=== PATIENT | female | born 1960 | race Caucasian/White ===

== ENCOUNTER 2018-04-30 13:36 | Inpatient (IN) ==
--- NOTE | 2018-04-30 14:41 | ED ---
HPI General Chief Complaint: Psychiatric Symptoms Stated Complaint: Psych Eval Time Seen by Provider: 04/30/18 14:22 Source: patient Mode of arrival: ambulatory Limitations: no limitations History of Present Illness HPI Narrative: Patient is a 57-year-old female who presents to the emergency room for psychiatric evaluation. Patient reports that she has been feeling depressed, feels like she is extremely anxious. Patient reports that she had the beginnings of a psychiatric workup when she was seen at the other hospitals , reports that she never stayed for psychiatric evaluation. Patient reports that she would like to complete the process to be seen by psychiatrist. Patient denies suicidal or homicidal ideations at this time. Reports that she used to drink alcohol daily - she quit drinking alcohol 3 weeks ago. Denies use of drugs. Related Data Home Medications Medication Instructions Recorded Confirmed No Known Home Medications 02/28/18 04/30/18 Allergies Allergy/AdvReac Type Severity Reaction Status Date / Time No Known Allergies Allergy Verified 04/30/18 13:41 Review of Systems ROS: all other systems reviewed are negative [facility] Medical History Medical History Anxiety (Acute) Surgical History Surgical History No history of previous surgery (Acute) Social History Social History Substance History: No History of Abuse Second Hand Smoke Exposure: No Smoking Status: Current every day smoker Tobacco Type: Cigarettes How Often Do You Have a Drink Containing Alcohol: Never Recent Travel in [facility] within the Last 8 Weeks: No Recent Out of Country Travel within the Last 8 Weeks: No Immunization History Tetanus Immunization: Unsure Exam Narrative Exam Narrative: GENERAL: NAD SKIN: Focused skin assessment warm/dry. HEAD: Atraumatic. Normocephalic. EYES: Pupils equal and round. No scleral icterus. No injection or drainage. ENT: No nasal bleeding or discharge. Mucous membranes pink and moist. NECK: Trachea midline. No JVD. CARDIOVASCULAR: Regular rate and rhythm. No murmur appreciated. RESPIRATORY: No accessory muscle use. Clear to auscultation. Breath sounds equal bilaterally. GASTROINTESTINAL: Abdomen soft, non-tender, nondistended. Hepatic and splenic margins not palpable. MUSCULOSKELETAL: No obvious deformities. No clubbing. No cyanosis. No edema. NEUROLOGICAL: Awake and alert. No obvious cranial nerve deficits. Motor grossly within normal limits. Normal speech. PSYCHIATRIC: Anxious mood and affect; -Si -HI Course Initial Documented Vital Signs Temperature 97.4 F L 04/30/18 13:39 Pulse Rate 104 H 04/30/18 13:39 Respiratory Rate 18 04/30/18 13:39 Blood Pressure 167/113 H 04/30/18 13:39 Pulse Oximetry 99 04/30/18 13:39 Last Documented Vital Signs Temperature 97.4 F L 04/30/18 13:39 Pulse Rate 104 H 04/30/18 13:39 Respiratory Rate 18 04/30/18 13:39 Blood Pressure 167/113 H 04/30/18 13:39 Pulse Oximetry 99 04/30/18 13:39 Medical Decision Making MDM Narrative Medical decision making narrative: During the course of the patients emergency department visit, the patients history, examination, and differential diagnosis were reviewed with the patient. Patient denies SI or HI, psychiatric screening labs were ordered. Once labs have resulted, will be seen by psychiatric screener. Patient was evaluated utilizing the RMA process. Initially seen by Dr. West. CBC reveals WBC 6.3, hemoglobin 16.8. CMP with no acute findings. TSH 0.913. UA with occasional bacteria. No culture pending indicated. Tox screen negative. Alcohol less than 3. Patient is medically clear for psychiatric evaluation. Medical Screen Exam Complete: Yes Emergency Medical Condition: Yes Differential Diagnosis Differential Diagnosis: depression, anxiety Lab Data Result diagrams: 04/30/18 14:53 04/30/18 14:53 Lab Results 04/30/18 04/30/18 04/30/18 Range/Units 14:53 14:53 15:30 WBC 6.3 (4.0-11.0) th/mm3 RBC 4.99 (4.00-5.30) mil/mm3 Hgb 16.8 H (11.6-15.3) gm/dL Hct 48.9 H (35.0-46.0) % MCV 97.9 (80.0-100.0) fL MCH 33.7 (27.0-34.0) pg MCHC 34.4 (32.0-36.0) % RDW 12.7 (11.6-17.2) % Plt Count 311 (150-450) th/mm3 MPV 9.4 (7.0-11.0) fL Neut % (Auto) 59.3 (16.0-70.0) % Lymph % (Auto) 33.0 (9.0-44.0) % [place] % (Auto) 6.1 (0.0-8.0) % Eos % (Auto) 0.7 (0.0-4.0) % Baso % (Auto) 0.9 (0.0-2.0) % Neut # (Auto) 3.7 (1.8-7.7) th/mm3 Lymph # (Auto) 2.1 (1.0-4.8) th/mm3 [place] # (Auto) 0.4 (0.0-0.9) th/mm3 Eos # (Auto) 0.0 (0.0-0.4) th/mm3 Baso # (Auto) 0.1 (0.0-0.2) th/mm3 WBC Differential . Differential Comment Auto diff final Sodium 136 (136-145) meq/L Potassium 3.6 (3.5-5.1) meq/L Chloride 103 (98-107) meq/L Carbon Dioxide 25.2 (21.0-32.0) meq/L Anion Gap 8 (5-15) meq/L BUN 3 L (7-18) mg/dL Creatinine 0.48 L (0.50-1.00) mg/dL Estimated GFR Greater than 89 (>89) mL/min Random Glucose 88 (74-106) mg/dL Calcium 8.7 (8.5-10.1) mg/dL Magnesium 2.2 (1.5-2.5) mg/dL Total Bilirubin 0.4 (0.2-1.0) mg/dL AST 16 (15-37) U/L ALT 19 (10-53) U/L Alkaline Phosphatase 106 (45-117) U/L Total Protein 7.4 (6.4-8.2) g/dL Albumin 3.7 (3.4-5.0) g/dL TSH 0.913 (0.358-3.740) uIU/mL Urine Opiates Screen Neg (Neg) Ur Barbiturates Screen Neg (Neg) Ur Amphetamines Screen Neg (Neg) U Benzodiazepines Scrn Neg (Neg) Urine Cocaine Screen Neg (Neg) U Cannabinoids Screen Neg (Neg) Serum Alcohol 4 (0-5) mg/dL Discharge Plan Discharge Disposition Patient Disposition: Sign Out(ED Internal Use Only) Physicians Team ED Provider: Millicent West ED Midlevel Provider: Dayanna Mcneil Rxs /Orders / Referrals /Forms Prescriptions: No Action No Known Home Medications RF: 0 Status ED Status: Medically Cleared
[2018-04-30 15:45] LABS: Baso # (Auto) 0.1 th/mm3 (0.0-0.2); Baso % (Auto) 0.9 % (0.0-2.0); Eos % (Auto) 0.7 % (0.0-4.0); Hematocrit 48.9 % (35.0-46.0); Hemoglobin 16.8 gm/dL (11.6-15.3); Lymph # (Auto) 2.1 th/mm3 (1.0-4.8); Mean Corpuscular HGB Conc 34.4 % (32.0-36.0); Mean Corpuscular Hemoglobin 33.7 pg (27.0-34.0); Mean Corpuscular Volume 97.9 fL (80.0-100.0); Mean Platelet Volume 9.4 fL (7.0-11.0); Mono # (Auto) 0.4 th/mm3 (0.0-0.9); Mono % (Auto) 6.1 % (0.0-8.0); Neut # (Auto) 3.7 th/mm3 (1.8-7.7); Neut % (Auto) 59.3 % (16.0-70.0); Platelet Count 311 th/mm3 (150-450); Red Blood Count 4.99 mil/mm3 (4.00-5.30); Red Cell Distribution Width 12.7 % (11.6-17.2); White Blood Count 6.3 th/mm3 (4.0-11.0)
[2018-04-30 15:53] LABS: Amphetamine Screen,Urine Neg (Neg); Barbiturate Screen,Urine Neg (Neg); Cannabinoid Screen,Urine Neg (Neg); Cocaine Screen,Urine Neg (Neg)
[2018-04-30 15:55] LABS: Opiate Screen,Urine Neg (Neg)
[2018-04-30 16:09] LABS: Albumin 3.7 g/dL (3.4-5.0); Anion Gap 8 meq/L (5-15); Aspartate Aminotransferase 16 U/L (15-37); Blood Urea Nitrogen 3 mg/dL (7-18); Calcium 8.7 mg/dL (8.5-10.1); Carbon Dioxide 25.2 meq/L (21.0-32.0); Chloride 103 meq/L (98-107); Glomerular Filtration Rate Greater Than 89 mL/min (>89); Glucose,Random 88 mg/dL (74-106); Magnesium 2.2 mg/dL (1.5-2.5); Potassium 3.6 meq/L (3.5-5.1); Sodium 136 meq/L (136-145)
[2018-04-30 16:11] LABS: Alanine Aminotransferase 19 U/L (10-53)
[2018-04-30 16:16] LABS: Alcohol 4 mg/dL (0-5)
[2018-04-30 16:20] LABS: Alkaline Phosphatase 106 U/L (45-117); Thyroid Stimulating Hormone 0.913 uIU/mL (0.358-3.740); Total Protein 7.4 g/dL (6.4-8.2)
[2018-04-30] MEDS ORDERED: Acetaminophen 325 MG Tablet PO PRN (22:58)
[2018-04-30] MEDS ORDERED: Aluminum/Magnesium/Simethacone Susp 30 ML UDC PO PRN (22:59)
[2018-04-30] MEDS: LORazepam 1 MG Tablet PO PRN (23:58)
--- NOTE | 2018-05-01 12:58 | P.HPPSY ---
Provisional Diagnosis Admission Date: April 30, 2018 23:38 Adjustment disorder with disturbance of mood and anxiety [place] I.: May 01, 2018 HPI: Patient is a 57-year-old female is admitted with vague complaints about anxiety and difficulty with depressed mood but without suicidal homicidal ideation. Patient also denies any auditory or visual hallucinations. She is to presents very long history of increasing anxiety and depressed mood associated with feelings that she is coming less capable due to dementia. Patient claims that she has difficulty now doing her bills and organizing her activities. She claims that her who has been at home working on taxes has added to her grief since she has never had to do with him and his criticisms and joking about her issues. Patient recognizes that her problems are related to her interpersonal and especially intra family problems that she sees herself is less capable of managing. She claims that she has always been one who was able to get things done but finds herself unable to understand why age is made a difference. The basis of her anxiety appears to be that she fears that she is developing a progressive dementia. Social history the patient lives with her and 17-year old daughter. Other children 39 and a sons 32. A 32-year-old sons she feels she does give more attention than she gives her . She feels that her resents this. Discussion was had with the patient that she certainly could benefit more from counseling then for medication Patient claims she stopped drinking about 3 weeks ago, but it is unclear how much her drinking had to do with her current problems. Competence Certification of Person's Competence To Provide Express and Informed Consent I have personally examined Ayleen Wheeler, a person being served at [facility] on, May 01, 2018 1240. Express and informed consent means consent voluntarily given in writing, by a competent person, after sufficient explanation and disclosure of the subject matter involved to enable the person to make a knowing and willful decision without any element of force, fraud, deceit, duress, or other form of constraint or coercion. This person is 18 years of age or older, is not now known to be incompetent to consent to treatment with a guardian advocate, and does not have a health care surrogate or proxy currently making medical treatment decisions. I have found this person to be one of the following: [] Competent to provide express and informed consent, as defined above, for voluntary admission to this facility and is competent to provide express and informed consent for treatment. He/she has the consistent capacity to make well reasoned, willful, and knowing decisions concerning his or her medical or mental health treatment. The person fully and consistently understands the purpose of the admission for examination/placement and is fully capable of personally exercising all rights assured [place] [] Incompetent to provide express and informed consent to voluntary admission, and this is incompetent to provide express and informed consent to treatment. The person must be transferred to involuntary status and a petition for a guardian advocate filed with the Circuit Court. [] Refusing to provide express and informed consent to voluntary admission but is competent to provide express and informed consent for treatment. The person must be discharged or transferred to involuntary status. Form shall be completed within 24 hours of a person's arrival at the receiving facility and filed in the clinical record of each person: 1. Admitted on a voluntary basis 2. Permitted to provide express and informed consent to his/her own treatment 3. Allowed to transfer from involuntary to voluntary status 4. Prior to permitting a person to consent to his or her own treatment after having been previously found incompetent to consent to treatment. History of Present Illness Capacity: Has capacity - Inpatient Certification I certify that the inpatient services were ordered in accordance with Medicare regulations governing the order. This includes certification that hospital inpatient services are reasonable and necessary and in the case of services not specified as inpatient-only under 42 CFR 419.22(n), that they are appropriately provided as inpatient services in accordance to with the 2-midnight benchmark under 43 CFR 412.3(e) I certify that inpatient psychiatric hospital services are medically necessary. Evaluation and treatment and/or diagnostic testing are expected to improve the patient's condition. The patient needs on a daily basis, active treatment furnished directly by or requiring the supervision of inpatient psychiatric facility personnel. Estimated Total Length of Stay (Days): 3 Plans for Post Hospital Care: Not yet determined Review of Systems Constitutional: Reports fatigue Psychiatric: Reports anxiety, Reports depression PMFSH - History History Provided By: Patient - Medical History Medical History: Medical History (Last Reviewed 04/30/18 @ 14:39 by Millicent West) Anxiety - Surgical History Surgical History: Surgical History (Last Reviewed 04/30/18 @ 14:39 by Millicent West) No history of previous surgery - Tobacco History Second Hand Smoke Exposure: Yes Tobacco Use In Past 30 Days: Yes Smoking Status: Current every day smoker Tobacco Type: Cigarettes - Alcohol History How Often Do You Have a Drink Containing Alcohol: Monthly or less - Substance Use History Substance History: No History of Abuse - Travel History Recent Travel in the [place] Within the Last 8 Weeks: No Recent Travel Out of the Country Within the Last 8 Weeks: No - Immunization History Tetanus Immunization: Unsure Medications and Allergies Active Medications: Active Medications Acetaminophen (Tylenol) 650 mg PO Q4H PRN PRN Reason: PAIN 1-5 OR TEMP > 101 Al Hydrox/Mg Hydrox/Simethicone (Mag-Al Plus Susp Liq) 30 ml PO Q6H PRN PRN Reason: DYSPEPSIA Al Hydroxide/Mg Hydroxide (Milk Of Magnesia Liq) 30 ml PO Q24H PRN PRN Reason: CONSTIPATION Al Hydroxide/Mg Hydroxide (Milk Of Magnesia Liq) 30 ml PO Q12H PRN PRN Reason: Mild Constipation Diphenhydramine HCl (Benadryl) 50 mg PO Q6H PRN PRN Reason: For mild anxiety and/or EPS Last Admin: 04/30/18 23:58 Dose: 50 mg Diphenhydramine HCl (Benadryl) 50 mg PO HS PRN PRN Reason: INSOMNIA Diphenhydramine HCl (Benadryl Inj) 50 mg IM Q6H PRN PRN Reason: For mild anxiety and/or EPS Diphenhydramine HCl (Benadryl Inj) 50 mg IM HS PRN PRN Reason: INSOMNIA Lorazepam (Ativan Inj) 1 mg IM Q6H PRN PRN Reason: MODERATE TO SEVERE ANXIETY Lorazepam (Ativan) 1 mg PO Q6H PRN PRN Reason: MODERATE TO SEVERE ANXIETY Last Admin: 04/30/18 23:58 Dose: 1 mg Nicotine (Habitrol 21 Mg Patch.24 Hr) 1 patch T-DERMAL DAILY [facility] Last Admin: 05/01/18 09:02 Dose: 1 patch Patch Removal (Remove Old Patch) 1 each T-DERMAL HS [facility] Last Admin: 04/30/18 23:57 Dose: Not Given Allergies Allergy/AdvReac Type Severity Reaction Status Date / Time No Known Allergies Allergy Verified 04/30/18 13:41 Home Medications Medication Instructions Recorded Confirmed Type No Known Home Medications 02/28/18 04/30/18 History Results - Labs CBC & Chem 7: 04/30/18 14:53 04/30/18 14:53 Labs: Laboratory Results - last 24 hr 04/30/18 04/30/18 04/30/18 14:53 14:53 15:30 WBC 6.3 RBC 4.99 Hgb 16.8 H Hct 48.9 H MCV 97.9 MCH 33.7 MCHC 34.4 RDW 12.7 Plt Count 311 MPV 9.4 Neut % (Auto) 59.3 Lymph % (Auto) 33.0 [place] % (Auto) 6.1 Eos % (Auto) 0.7 Baso % (Auto) 0.9 Neut # (Auto) 3.7 Lymph # (Auto) 2.1 [place] # (Auto) 0.4 Eos # (Auto) 0.0 Baso # (Auto) 0.1 WBC Differential . Differential Comment Auto diff final Sodium 136 Potassium 3.6 Chloride 103 Carbon Dioxide 25.2 Anion Gap 8 BUN 3 L Creatinine 0.48 L Estimated GFR Greater than 89 Random Glucose 88 Calcium 8.7 Magnesium 2.2 Total Bilirubin 0.4 AST 16 ALT 19 Alkaline Phosphatase 106 Total Protein 7.4 Albumin 3.7 TSH 0.913 Urine Opiates Screen Neg Ur Barbiturates Screen Neg Ur Amphetamines Screen Neg U Benzodiazepines Scrn Neg Urine Cocaine Screen Neg U Cannabinoids Screen Neg Serum Alcohol 4 Exam Vital signs: Vital Signs 04/30/18 13:39 04/30/18 18:25 04/30/18 22:00 Temperature 97.4 F L 98.0 F 97.9 F Pulse Rate 104 H 78 82 Respiratory Rate 18 20 22 Blood Pressure 167/113 H 159/95 H 119/74 Pulse Oximetry 99 98 97 05/01/18 01:35 05/01/18 05:52 Temperature 97.9 F 97.9 F Pulse Rate 67 86 Respiratory Rate 16 16 Blood Pressure 129/67 109/62 Pulse Oximetry 100 97 Intake & Output 04/30/18 05/01/18 05/01/18 18:59 06:59 18:59 Intake Total 720 / 720 Balance 720 / 720 Weight 48.081 kg 47.6 kg Intake: Oral 720 / 720 Other: Weight On Admission 47.6 kg Mental Status Examination Appearance: Appropriate Consciousness: Alert, Obtunded Orientation: x4 Motor Activity: Normal gait Speech: Unremarkable Language: Adequate Fund of Knowledge: Adequate Attention and Concentration: Adequate Memory: Unremarkable Mood: Sad, Anxious Affect: Sad, Anxious Thought Process & Associations: Intact Thought Content: Appropriate Hallucination Type: None Delusion Type: None Suicidal Ideation: No Suicidal Plan: No Suicidal Intention: No Homicidal Ideation: No Homicidal Plan: No Assessment and Plan - Plan Plan: Estimated LOS: [5] days May 01, 2018 I will ask social media analyst to recommend to the patient some counseling and possible family therapy. Patient is depressed and anxious and is difficult to know which comes first, but given her increasing inability to function at her usual activities I would anticipate it is a bit of both. I think the patient would benefit from an SSRI possibly Zoloft will start her on a low dosage (25 mg ) today along with her Atarax. Justification for Continued Inpatient Stay: May 01, 2018 Patient at risk for decompensation at a lower level of care.
[2018-05-01] MEDS: LORazepam 1 MG Tablet PO PRN (13:59)
[2018-05-01] MEDS: Sertraline 50 MG Tablet PO SCH (15:55)
[2018-05-02 08:03] LABS: Anion Gap 7 meq/L (5-15); Blood Urea Nitrogen 9 mg/dL (7-18); Calcium 8.7 mg/dL (8.5-10.1); Chloride 105 meq/L (98-107); Cholesterol 175 mg/dL (120-200); Glomerular Filtration Rate Greater Than 89 mL/min (>89); Glucose,Random 85 mg/dL (74-106); Potassium 4.1 meq/L (3.5-5.1); Sodium 138 meq/L (136-145)
[2018-05-02 08:06] LABS: HDL Cholesterol 62.4 mg/dL (40.0-60.0); LDL Cholesterol,Calculated 94 mg/dL (0-99); Triglycerides 93 mg/dL (42-150)
[2018-05-02] MEDS: Sertraline 50 MG Tablet PO SCH (11:52)
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
[2018-05-02 15:35] LABS: Hemoglobin A1c 6.3 % (4.3-6.0)
== END 2018-05-02 15:55 | disposition home or self-care (01) | DRG 882 ==
LOC: NEPJ 13:36 → NEDA 23:38 → H260 05-01 00:04
PROVIDERS: ADMIT Psychiatry & Neurology Child & Adolescent Psychiatry; ATTEND Psychiatry & Neurology Child & Adolescent Psychiatry
CPT/HCPCS: Q0163